=== PATIENT | female | born 1995 | race Caucasian/White ===

== ENCOUNTER → 2016-08-25 | Outpatient (REF) | payer MEDICAID ==
[2016-08-25 16:25] LABS: VITAMIN B12 LEVEL 647 PG/ML (247-911)
[2016-08-25 16:26] LABS: MEAN CORPUSCULAR HEMOGLOBIN 30.9 pg (27.0-33.0); MEAN CORPUSCULAR HGB CONC 33.8 g/dl (32.0-36.5); MEAN CORPUSCULAR VOLUME 91.3 fl (80.0-96.0); RED CELL DISTRIBUTION WIDTH 12.7 % (11.5-14.5); WHITE BLOOD COUNT 7.2 K/mm3 (4.0-10.0)
[2016-08-25 16:27] LABS: ALBUMIN 4.1 GM/DL (3.2-5.2); ALBUMIN/GLOBULIN RATIO 1.41 (1.00-1.93); ALKALINE PHOSPHATASE 53 U/L (45-117); ALT/SGPT 46 U/L (12-78); ANION GAP 8 MEQ/L (8-16); AST/SGOT 24 U/L (15-37); BILIRUBIN,TOTAL 0.3 MG/DL (0.2-1.0); BLOOD UREA NITROGEN 15 MG/DL (7-18); CALCIUM LEVEL 9.2 MG/DL (8.5-10.1); CARBON DIOXIDE LEVEL 29 MEQ/L (21-32); CHLORIDE LEVEL 107 MEQ/L (98-107); CREATININE FOR GFR 0.74 MG/DL (0.55-1.02); GLOMERULAR FILTRATION RATE > 60.0 (>60); GLUCOSE, FASTING 87 MG/DL (70-105); POTASSIUM SERUM 3.7 MEQ/L (3.5-5.1); SODIUM LEVEL 144 MEQ/L (136-145)
== END ==
LOC: M SFHCPLAZ 13:54
PROVIDERS: ATTEND Nurse Practitioner Adult Health
DX: R53.83 Other fatigue (principal); E66.9 Obesity, unspecified

== ENCOUNTER → 2016-11-19 | Outpatient (REF) | payer OTHER | LOC: M SFHCPLAZ 09:01 | PROVIDERS: ATTEND Nurse Practitioner Adult Health | DX: E66.9 Obesity, unspecified (principal) ==

== ENCOUNTER → 2017-08-28 | Outpatient (CLI) | payer OTHER ==
[2017-08-28 11:06] LABS: HEMATOCRIT 39.9 % (36.0-47.0); HEMOGLOBIN 13.3 g/dl (12.0-16.0); MEAN CORPUSCULAR HEMOGLOBIN 30.4 pg (27.0-33.0); MEAN CORPUSCULAR HGB CONC 33.3 g/dl (32.0-36.5); MEAN CORPUSCULAR VOLUME 91.3 fl (80.0-96.0); PLATELET COUNT, AUTOMATED 264 10^3/uL (150-450); RED BLOOD COUNT 4.37 10^6/uL (4.00-5.40); RED CELL DISTRIBUTION WIDTH 12.5 % (11.5-14.5); WHITE BLOOD COUNT 7.6 10^3/uL (4.0-10.0)
[2017-08-28 11:30] LABS: ALBUMIN 4.1 GM/DL (3.2-5.2); ALBUMIN/GLOBULIN RATIO 1.28 (1.00-1.93); ALKALINE PHOSPHATASE 41 U/L (45-117); ALT/SGPT 24 U/L (12-78); ANION GAP 8 MEQ/L (8-16); AST/SGOT 17 U/L (7-37); BILIRUBIN,TOTAL 0.5 MG/DL (0.2-1.0); BLOOD UREA NITROGEN 14 MG/DL (7-18); CARBON DIOXIDE LEVEL 26 MEQ/L (21-32); CHLORIDE LEVEL 107 MEQ/L (98-107); CREATININE FOR GFR 0.69 MG/DL (0.55-1.30); GLOMERULAR FILTRATION RATE > 60.0 (>60); GLUCOSE, FASTING 70 MG/DL (70-100); POTASSIUM SERUM 3.9 MEQ/L (3.5-5.1); SODIUM LEVEL 141 MEQ/L (136-145); TOTAL PROTEIN 7.3 GM/DL (6.4-8.2)
[2017-08-30 09:37] LABS: TOTAL 25(OH) VITAMIN D 23.9 NG/ML (30.0-100.0)
== END ==
LOC: M WUC 09:00
DX: Z00.00 Encounter for general adult medical examination without abnormal findings (principal); E55.9 Vitamin D deficiency, unspecified
CPT/HCPCS: 84443

== ENCOUNTER → 2018-07-26 | Outpatient (REF) | payer OTHER | LOC: M SFHCPLAZ 16:02 | PROVIDERS: ATTEND Nurse Practitioner Adult Health | DX: N39.0 Urinary tract infection, site not specified (principal) ==

== ENCOUNTER → 2018-09-06 | Outpatient (REF) | payer OTHER ==
[2018-09-06 19:57] LABS: ALBUMIN 3.9 GM/DL (3.2-5.2); ALT/SGPT 34 U/L (12-78); BILIRUBIN,TOTAL 0.4 MG/DL (0.2-1.0); BLOOD UREA NITROGEN 12 MG/DL (7-18); CALCIUM LEVEL 8.8 MG/DL (8.5-10.1); CARBON DIOXIDE LEVEL 27 MEQ/L (21-32); CHLORIDE LEVEL 106 MEQ/L (98-107); GLOMERULAR FILTRATION RATE > 60.0 (>60); GLUCOSE, FASTING 72 MG/DL (70-100); POTASSIUM SERUM 4.4 MEQ/L (3.5-5.1); SODIUM LEVEL 141 MEQ/L (136-145); THYROID STIMULATING HORMONE 0.633 uIU/ML (0.358-3.740); TOTAL 25(OH) VITAMIN D 38.3 NG/ML (30.0-100.0); TOTAL PROTEIN 7.1 GM/DL (6.4-8.2); VITAMIN B12 LEVEL 636 PG/ML (247-911)
== END ==
LOC: M SFHCPLAZ 14:48
PROVIDERS: ATTEND Nurse Practitioner Adult Health
DX: Z00.00 Encounter for general adult medical examination without abnormal findings (principal); E55.9 Vitamin D deficiency, unspecified

== ENCOUNTER → 2019-06-23 | Outpatient (REF) | payer OTHER ==
[2019-06-23 12:54] LABS: HEMOGLOBIN A1c 5.1 %
[2019-06-23 13:02] LABS: ALT/SGPT 29 U/L (12-78); BLOOD UREA NITROGEN 17 MG/DL (7-18); CALCIUM LEVEL 9.4 MG/DL (8.5-10.1); CARBON DIOXIDE LEVEL 29 MEQ/L (21-32); CHLORIDE LEVEL 109 MEQ/L (98-107); CREATININE FOR GFR 0.67 MG/DL (0.55-1.30); GLOMERULAR FILTRATION RATE > 60.0 (>60); GLUCOSE, FASTING 90 MG/DL (70-100); POTASSIUM SERUM 4.3 MEQ/L (3.5-5.1); SODIUM LEVEL 143 MEQ/L (136-145)
[2019-06-23 13:03] LABS: ALBUMIN 3.8 GM/DL (3.2-5.2); BILIRUBIN,TOTAL 0.5 MG/DL (0.2-1.0); THYROID STIMULATING HORMONE 0.883 uIU/ML (0.358-3.740); TOTAL 25(OH) VITAMIN D 43.5 NG/ML (30.0-100.0)
== END ==
LOC: M SFHCPLAZ 08:39
PROVIDERS: ATTEND Nurse Practitioner Adult Health
DX: E55.9 Vitamin D deficiency, unspecified (principal); R53.83 Other fatigue; E66.9 Obesity, unspecified

== ENCOUNTER → 2020-03-21 | Outpatient (CLI) | payer OTHER ==
[2020-03-21 17:33] LABS: ALT/SGPT 36 U/L (12-78); BILIRUBIN,TOTAL 0.3 MG/DL (0.2-1.0); BLOOD UREA NITROGEN 14 MG/DL (7-18); CALCIUM LEVEL 9.2 MG/DL (8.5-10.1); CARBON DIOXIDE LEVEL 30 MEQ/L (21-32); CHLORIDE LEVEL 107 MEQ/L (98-107); CREATININE FOR GFR 0.74 MG/DL (0.55-1.30); GLOMERULAR FILTRATION RATE > 60.0 (>60); GLUCOSE, FASTING 97 MG/DL (70-100); POTASSIUM SERUM 4.1 MEQ/L (3.5-5.1); SODIUM LEVEL 141 MEQ/L (136-145); THYROID STIMULATING HORMONE 0.914 uIU/ML (0.358-3.740); TOTAL 25(OH) VITAMIN D 24.4 NG/ML (30.0-100.0); TOTAL PROTEIN 7.1 GM/DL (6.4-8.2)
== END ==
LOC: M PLALAB 12:39
PROVIDERS: ATTEND Nurse Practitioner Adult Health
DX: Z00.00 Encounter for general adult medical examination without abnormal findings (principal); E66.9 Obesity, unspecified; Z13.29 Encounter for screening for other suspected endocrine disorder

== ENCOUNTER → 2022-06-04 | Outpatient (CLI) | payer BC, OTHER ==
[2022-06-04 10:18] LABS: HEMATOCRIT 39.7 % (36.0-47.0); HEMOGLOBIN 13.1 g/dl (12.0-15.5); MEAN CORPUSCULAR HEMOGLOBIN 31.3 pg (27.0-33.0); MEAN CORPUSCULAR VOLUME 94.7 fl (80.0-96.0); PLATELET COUNT, AUTOMATED 232 10^3/uL (150-450); RED BLOOD COUNT 4.19 10^6/uL (4.00-5.40); WHITE BLOOD COUNT 3.7 10^3/uL (4.0-10.0)
[2022-06-04 12:45] LABS: ALBUMIN 3.9 G/DL (3.2-5.2); ALKALINE PHOSPHATASE 37 U/L (46-116); ALT/SGPT 21 U/L (7.0-40); AST/SGOT 18 U/L (<34); BILIRUBIN,TOTAL 0.3 MG/DL (0.3-1.2); BLOOD UREA NITROGEN 15 MG/DL (9-23); CALCIUM LEVEL 9.8 MG/DL (8.5-10.1); CARBON DIOXIDE LEVEL 29 MMOL/L (20-31); CHLORIDE LEVEL 107 MMOL/L (98-107); CREATININE FOR GFR 0.59 MG/DL (0.55-1.30); GLOMERULAR FILTRATION RATE > 60.0 (>60); GLUCOSE, FASTING 94 MG/DL (60-100); POTASSIUM SERUM 4.3 MMOL/L (3.5-5.1); SODIUM LEVEL 142 MMOL/L (136-145); THYROID STIMULATING HORMONE 0.457 uIU/ML (0.55-4.78); TOTAL 25(OH) VITAMIN D 39.4 NG/ML (20.0-100.0); TOTAL PROTEIN 6.6 G/DL (5.7-8.2); VITAMIN B12 LEVEL 481 PG/ML (211-911)
== END ==
LOC: M LAB 09:26
PROVIDERS: ATTEND Nurse Practitioner Adult Health
DX: Z00.00 Encounter for general adult medical examination without abnormal findings (principal); E55.9 Vitamin D deficiency, unspecified; Z13.29 Encounter for screening for other suspected endocrine disorder; Z82.5 Family history of asthma and other chronic lower respiratory diseases

== ENCOUNTER → 2022-08-20 | Outpatient (REF) | payer BC, OTHER ==
[2022-08-20 22:30] LABS: APPEARANCE, URINE MANUAL CLOUDY (CLEAR); COLOR, URINE MANUAL LT YELLOW (YELLOW)
[2022-08-20 22:31] LABS: BILIRUBIN, URINE MANUAL NEGATIVE (NEGATIVE); BLOOD URINE MANUAL POSITIVE (NEGATIVE); GLUCOSE, URINE (UA) MANUAL NEGATIVE (NEGATIVE); KETONE, URINE MANUAL NEGATIVE (NEGATIVE); LEUKOCYTE ESTERASE, URINE MAN POSITIVE (NEGATIVE); NITRITE, URINE MANUAL NEGATIVE (NEGATIVE); PH,URINE MAN 6.5 UNITS (5.0 - 7.0); PROTEIN, URINE MANUAL NEGATIVE (NEGATIVE); UROBILINOGEN, URINE MANUAL NORMAL (NORMAL)
[2022-08-20 22:32] LABS: URINE PREG TEST NEGATIVE (NEGATIVE)
[2022-08-20 22:41] LABS: BACTERIA, URINE SMALL AMOUNT; HYALINE CAST, URINE NONE SEEN /lpf (0-1); RBC, URINE TNTC /hpf (0-3); SQUAMOUS EPITHELIAL CELL URINE SMALL AMOUNT /hpf (SMALL AMT); WBC, URINE 40-50 /hpf (0-3)
== END ==
LOC: M LAB REF 22:25
PROVIDERS: ATTEND Physician Assistant
DX: O23.30 Infections of other parts of urinary tract in pregnancy, unspecified trimester (principal)

== ENCOUNTER → 2022-11-10 | Outpatient (REF) | payer BC, OTHER | LOC: M SFHCDERM 12:20 | PROVIDERS: ATTEND Nurse Practitioner Family | DX: D49.2 Neoplasm of unspecified behavior of bone, soft tissue, and skin (principal); L08.89 Other specified local infections of the skin and subcutaneous tissue ==

== ENCOUNTER → 2022-11-10 | Outpatient (REF) | payer BC, OTHER | LOC: M SFHCWAGY 17:20 | PROVIDERS: ATTEND Nurse Practitioner Family | DX: Z12.4 Encounter for screening for malignant neoplasm of cervix (principal) ==

== ENCOUNTER → 2024-04-19 | Outpatient (CLI) | payer BC ==
[2024-04-19 11:59] LABS: HEMATOCRIT 38.6 % (36.0-47.0); HEMOGLOBIN 12.9 g/dl (12.0-15.5); MEAN CORPUSCULAR HEMOGLOBIN 31.5 pg (27.0-33.0); MEAN CORPUSCULAR HGB CONC 33.4 g/dl (32.0-36.5); MEAN CORPUSCULAR VOLUME 94.4 fl (80.0-96.0); PLATELET COUNT, AUTOMATED 249 10^3/uL (150-450); RED BLOOD COUNT 4.09 10^6/uL (4.00-5.40); WHITE BLOOD COUNT 5.9 10^3/uL (4.0-10.0)
[2024-04-19 12:53] LABS: HIV 1&2 SCREEN NEGATIVE (NEGATIVE)
[2024-04-19 13:01] LABS: HEPATITIS C VIRUS ABY INDEX 0.02 INDEX (<0.8)
== END ==
LOC: M PLALAB 09:02
PROVIDERS: ATTEND Obstetrics & Gynecology
DX: Z34.01 Encounter for supervision of normal first pregnancy, first trimester (principal); Z31.430 Encounter of female for testing for genetic disease carrier status for procreative management

== ENCOUNTER → 2024-05-18 | Outpatient (CLI) | payer BC ==
[2024-05-18 11:45] LABS: GC DNA AMPLIFICATION NEGATIVE (NEGATIVE)
== END ==
LOC: M PLALAB 08:49
PROVIDERS: ATTEND Nurse Practitioner Family
DX: Z34.02 Encounter for supervision of normal first pregnancy, second trimester (principal); Z3A.00 Weeks of gestation of pregnancy not specified

== ENCOUNTER → 2024-05-30 | Outpatient (CLI) | payer BC ==
[2024-05-30 14:40] LABS: GC DNA AMPLIFICATION NEGATIVE (NEGATIVE)
== END ==
LOC: M PLALAB 08:31
PROVIDERS: ATTEND Obstetrics & Gynecology
DX: Z34.01 Encounter for supervision of normal first pregnancy, first trimester (principal); Z3A.00 Weeks of gestation of pregnancy not specified

== ENCOUNTER → 2024-05-30 | Outpatient (CLI) | payer BC ==
[2024-05-30 13:27] LABS: HEMATOCRIT 38.1 % (36.0-47.0); HEMOGLOBIN 12.7 g/dl (12.0-15.5); MEAN CORPUSCULAR HEMOGLOBIN 31.2 pg (27.0-33.0); MEAN CORPUSCULAR HGB CONC 33.3 g/dl (32.0-36.5); MEAN CORPUSCULAR VOLUME 93.6 fl (80.0-96.0); PLATELET COUNT, AUTOMATED 253 10^3/uL (150-450); RED BLOOD COUNT 4.07 10^6/uL (4.00-5.40); WHITE BLOOD COUNT 6.2 10^3/uL (4.0-10.0)
[2024-05-30 13:30] LABS: ALBUMIN 3.4 G/DL (3.2-5.2); ALKALINE PHOSPHATASE 43 U/L (35-104); ALT/SGPT 19 U/L (7.0-40); AST/SGOT < 8 U/L (<34); BILIRUBIN,TOTAL 0.2 MG/DL (0.3-1.2); BLOOD UREA NITROGEN 7 MG/DL (9-23); CALCIUM LEVEL 9.8 MG/DL (8.5-10.1); CARBON DIOXIDE LEVEL 26 MMOL/L (20-31); CHLORIDE LEVEL 109 MMOL/L (98-107); CHOLESTEROL LEVEL 237 MG/DL (<200); CHOLESTEROL RISK RATIO 4.03 (<5); CREATININE FOR GFR 0.51 MG/DL (0.55-1.30); GLOMERULAR FILTRATION RATE > 60.0 (>60); GLUCOSE, FASTING 87 MG/DL (60-100); HDL CHOLESTEROL 58.8 MG/DL (>40); IRON (FE) 90 UG/DL (50-170); LDL CHOLESTEROL 151.8 MG/DL (<100); NON-HDL-C 178.2 MG/DL; POTASSIUM SERUM 4.4 MMOL/L (3.5-5.1); SODIUM LEVEL 140 MMOL/L (136-145); TOTAL PROTEIN 6.5 G/DL (5.7-8.2); TRIGLYCERIDES LEVEL 132 MG/DL (<150)
[2024-05-30 14:00] LABS: HEMOGLOBIN A1c 4.8 % (4.0-6.0)
== END ==
LOC: M PLALAB 08:29
PROVIDERS: ATTEND Nurse Practitioner Adult Health
DX: Z00.00 Encounter for general adult medical examination without abnormal findings (principal); E55.9 Vitamin D deficiency, unspecified

== ENCOUNTER → 2024-06-13 | Outpatient (CLI) | payer BC | LOC: M PLALAB 14:40 | PROVIDERS: ATTEND Advanced Practice Midwife | DX: Z34.90 Encounter for supervision of normal pregnancy, unspecified, unspecified trimester (principal); Z3A.00 Weeks of gestation of pregnancy not specified ==

== ENCOUNTER → 2024-07-03 | Outpatient (CLI) | payer BC | LOC: M WHC 08:29 | PROVIDERS: ATTEND Nurse Practitioner Family | DX: Z34.02 Encounter for supervision of normal first pregnancy, second trimester (principal); Z3A.20 20 weeks gestation of pregnancy ==

== ENCOUNTER → 2024-08-10 | Outpatient (CLI) | payer BC | LOC: M RAD 10:21 | PROVIDERS: ATTEND Obstetrics & Gynecology | DX: Z34.92 Encounter for supervision of normal pregnancy, unspecified, second trimester (principal) ==

== ENCOUNTER → 2024-08-21 | Outpatient (CLI) | payer BC ==
[2024-08-21 18:16] LABS: CREATININE,RANDOM URINE 48.2 MG/DL
[2024-08-21 18:17] LABS: ALKALINE PHOSPHATASE 72 U/L (35-104); ALT/SGPT 16 U/L (7.0-40); AST/SGOT 9 U/L (<34); BILIRUBIN,TOTAL 0.2 MG/DL (0.3-1.2); BLOOD UREA NITROGEN 8 MG/DL (9-23); CALCIUM LEVEL 9.1 MG/DL (8.5-10.1); CARBON DIOXIDE LEVEL 25 MMOL/L (20-31); CHLORIDE LEVEL 104 MMOL/L (98-107); GLOMERULAR FILTRATION RATE > 60.0 (>60); GLUCOSE, FASTING 77 MG/DL (60-100); POTASSIUM SERUM 3.8 MMOL/L (3.5-5.1); SODIUM LEVEL 141 MMOL/L (136-145); TOTAL PROTEIN 6.7 G/DL (5.7-8.2); TOTAL PROTEIN,RANDOM URINE < 6.0 MG/DL (0.0-14.0)
== END ==
LOC: M PLALAB 15:45
PROVIDERS: ATTEND Obstetrics & Gynecology
DX: O16.3 Unspecified maternal hypertension, third trimester (principal)

== ENCOUNTER → 2024-08-21 | Outpatient (CLI) | payer BC ==
[2024-08-21 17:50] LABS: HEMATOCRIT 34.5 % (36.0-47.0); HEMOGLOBIN 11.4 g/dl (12.0-15.5); MEAN CORPUSCULAR HEMOGLOBIN 31.8 pg (27.0-33.0); MEAN CORPUSCULAR VOLUME 96.1 fl (80.0-96.0); PLATELET COUNT, AUTOMATED 255 10^3/uL (150-450); RED BLOOD COUNT 3.59 10^6/uL (4.00-5.40); WHITE BLOOD COUNT 9.7 10^3/uL (4.0-10.0)
[2024-08-21 18:05] LABS: GLUCOSE CHALLENGE TEST 1 HOUR 87 MG/DL (LESS THAN 140)
[2024-08-21 18:42] LABS: HEPATITIS C VIRUS ABY INDEX 0.12 INDEX (<0.8)
[2024-08-21 22:54] LABS: GC DNA AMPLIFICATION NEGATIVE (NEGATIVE)
[2024-08-22 12:28] LABS: HIV 1&2 SCREEN NEGATIVE (NEGATIVE)
== END ==
LOC: M PLALAB 14:36
PROVIDERS: ATTEND Obstetrics & Gynecology
DX: Z34.92 Encounter for supervision of normal pregnancy, unspecified, second trimester (principal)

== ENCOUNTER → 2024-09-29 | Outpatient (CLI) | payer BC | LOC: M WHC 08:28 | PROVIDERS: ATTEND Obstetrics & Gynecology | DX: Z36.2 Encounter for other antenatal screening follow-up (principal); Z3A.33 33 weeks gestation of pregnancy ==

== ENCOUNTER → 2024-10-12 | Outpatient (REF) | payer BC | LOC: M PLALAB 15:30 | PROVIDERS: ATTEND Obstetrics & Gynecology | DX: O13.3 Gestational [pregnancy-induced] hypertension without significant proteinuria, third trimester (principal); Z3A.35 35 weeks gestation of pregnancy ==

== ENCOUNTER → 2024-10-12 | Outpatient (CLI) | payer BC ==
[2024-10-12 15:57] LABS: HEMOGLOBIN 12.2 g/dl (12.0-15.5); MEAN CORPUSCULAR HEMOGLOBIN 32.4 pg (27.0-33.0); MEAN CORPUSCULAR HGB CONC 33.9 g/dl (32.0-36.5); MEAN CORPUSCULAR VOLUME 95.5 fl (80.0-96.0); PLATELET COUNT, AUTOMATED 231 10^3/uL (150-450); RED BLOOD COUNT 3.77 10^6/uL (4.00-5.40); WHITE BLOOD COUNT 7.8 10^3/uL (4.0-10.0)
[2024-10-12 16:17] LABS: URIC ACID 5.3 MG/DL (3.1-7.8)
[2024-10-12 16:19] LABS: LDH LACTATE DEHYDROGENASE 157 U/L (120-246)
[2024-10-12 16:20] LABS: ALT/SGPT 17 U/L (7.0-40); AST/SGOT 16 U/L (<34); BILIRUBIN,TOTAL 0.2 MG/DL (0.3-1.2); CREATININE FOR GFR 0.57 MG/DL (0.55-1.30); GLOMERULAR FILTRATION RATE > 60.0 (>60)
== END ==
LOC: M PLALAB 14:15
PROVIDERS: ATTEND Obstetrics & Gynecology
DX: O13.3 Gestational [pregnancy-induced] hypertension without significant proteinuria, third trimester (principal)

== ENCOUNTER → 2024-10-18 | Outpatient (REF) | payer BC ==
[2024-10-18 11:09] LABS: TOTAL PROTEIN,RANDOM URINE 10.4 MG/DL (0.0-14.0)
[2024-10-18 11:14] LABS: CREATININE,RANDOM URINE 70.3 MG/DL
== END ==
LOC: M SFHCPLAZ 09:45
PROVIDERS: ATTEND Obstetrics & Gynecology
DX: O13.3 Gestational [pregnancy-induced] hypertension without significant proteinuria, third trimester (principal)

== ENCOUNTER 2024-10-24 08:48 | Inpatient (IN) | payer BC ==
[~2024-10-24] VITALS: Ht 162.6 cm; Wt 114.4 kg
[2024-10-24] VITALS (12 sets, daily range): BP systolic 114–139; BP diastolic 68–88; O2SAT 98–99
[2024-10-24] MEDS ORDERED: PRENTAB9 PO (09:14)
[2024-10-24] MEDS ORDERED: ECOT81TA5 PO (09:14)
[2024-10-24] MEDS ORDERED: LR 1,000 ML IV SCH (09:55)
[2024-10-24] MEDS ORDERED: TRANEXAMIC ACID INJection 1,000 MG in NS 100 ML IV PRN (09:55)
[2024-10-24] MEDS ORDERED: LIDOCAINE 1% MDV 20ML VIAL INFIL PRN (09:55)
[2024-10-24] MEDS ORDERED: CARBOPROST TROMETHAMINE 250 MCG/ML AMP IM PRN (09:55)
[2024-10-24 11:03] LABS: BASO % 0.4 % (0.0-1.0); EOS # 0.1 10^3/uL (0.0-0.5); EOS % 1.1 % (0.0-3.0); HEMATOCRIT 35.2 % (36.0-47.0); HEMOGLOBIN 11.9 g/dl (12.0-15.5); LYMPH # 1.5 10^3/uL (1.5-5.0); LYMPH % 20.9 % (24.0-44.0); MEAN CORPUSCULAR HEMOGLOBIN 31.9 pg (27.0-33.0); MEAN CORPUSCULAR HGB CONC 33.8 g/dl (32.0-36.5); MEAN CORPUSCULAR VOLUME 94.4 fl (80.0-96.0); MONO # 0.6 10^3/uL (0.0-0.8); MONO % 7.8 % (2.0-8.0); NEUTROPHILS # 5.1 10^3/uL (1.5-8.5); NEUTROPHILS % 69.3 % (36.0-66.0); PLATELET COUNT, AUTOMATED 210 10^3/uL (150-450); RED BLOOD COUNT 3.73 10^6/uL (4.00-5.40); WHITE BLOOD COUNT 7.3 10^3/uL (4.0-10.0)
[2024-10-24 11:25] LABS: URIC ACID 5.9 MG/DL (3.1-7.8)
[2024-10-24 11:28] LABS: LDH LACTATE DEHYDROGENASE 147 U/L (120-246)
[2024-10-24 11:29] LABS: ALT/SGPT 15 U/L (7.0-40); AST/SGOT 14 U/L (<34); BILIRUBIN,TOTAL 0.2 MG/DL (0.3-1.2); CREATININE FOR GFR 0.52 MG/DL (0.55-1.30); GLOMERULAR FILTRATION RATE > 60.0 (>60)
[2024-10-24 12:09] LABS: HEPATITIS C VIRUS ABY INDEX 0.02 INDEX (<0.8)
[2024-10-24 12:13] LABS: TOTAL PROTEIN,RANDOM URINE 10.9 MG/DL (0.0-14.0)
[2024-10-24 12:19] LABS: CREATININE,RANDOM URINE 70.1 MG/DL
[2024-10-24] MEDS: miSOPROStol 50MCG 1/2 TABLET PO SCH (12:24)
[2024-10-25] VITALS (27 sets, daily range): BP systolic 111–170; BP diastolic 62–102
[2024-10-25] MEDS: miSOPROStol 50MCG 1/2 TABLET PO ONE (09:06)
[2024-10-25] MEDS: LR 1,000 ML IV SCH (14:05)
[2024-10-25] MEDS: OXYTOCIN DRIP 30 UNITS in IV 1 EA IV SCH (14:05)
[2024-10-25] MEDS: ACETAMINOPHEN 500 MG TAB PO PRN (21:33)
[2024-10-26] VITALS (42 sets, daily range): BP systolic 116–158; BP diastolic 59–94; O2SAT 100
[2024-10-26] MEDS ORDERED: LR 500 ML IV PRN (01:25)
[2024-10-26] MEDS ORDERED: diphenhydrAMINE 50MG/ML VIAL IV PRN (01:25)
[2024-10-26] MEDS ORDERED: ONDANSETRON 4MG 2ML VIAL IV PRN ×2 (01:25→14:15)
[2024-10-26] MEDS ORDERED: EPIDURAL/PCA KEYS XX PRN (01:25)
[2024-10-26] MEDS ORDERED: ePHEDrine SULFATE 25 MG/5 ML(5MG/ML) SYRINGE IVP PRN (01:25)
[2024-10-26] MEDS ORDERED: NALOXONE INJ 0.4MG/1ML VIAL IV PRN (01:25)
[2024-10-26] MEDS: FENTANYL/ROPIVACAINE/NACL BAG 100 ML EPIDURAL SCH (01:25)
[2024-10-26] MEDS: LACTATED RINGER'S 1000 ML IV STA (01:41)
[2024-10-26] MEDS: PRENATAL VITAMINS CHEWABLE TABLET PO SCH (09:00)
[2024-10-26] MEDS: OXYTOCIN DRIP 30 UNITS in IV 1 EA IV PRN (13:59)
[2024-10-26] MEDS ORDERED: DOCUSATE SODIUM 100MG CAPSULE PO PRN (14:15)
[2024-10-26] MEDS ORDERED: ACETAMINOPHEN 500 MG TAB PO PRN (14:15)
[2024-10-26] MEDS: OXYTOCIN DRIP 30 UNITS in IV 1 EA IV SCH (14:15)
[2024-10-26] MEDS ORDERED: CALCIUM CARBONATE 500 MG CHEW U/D PO PRN (14:15)
[2024-10-26] MEDS ORDERED: RHOGAM 300MCG (1500IU) INJ IM SCH (14:15)
[2024-10-26] MEDS ORDERED: LR 1,000 ML IV SCH (14:15)
[2024-10-26] MEDS ORDERED: IBUPROFEN 800 MG TAB PO PRN (14:15)
[2024-10-26] MEDS ORDERED: ACETAMINOPHEN 325 MG TAB PO PRN (14:15)
[2024-10-26] MEDS ORDERED: IBUPROFEN 600MG TAB PO PRN (14:15)
[2024-10-26] MEDS ORDERED: ANUSOL HC CREAM 30GM TOP PRN (14:15)
[2024-10-26] MEDS ORDERED: METHYLERGONOVINE MALEATE 0.2 MG TAB PO PRN (14:15)
[2024-10-27 05:57] VITALS: BP 137/83; O2SAT 98
[2024-10-27] MEDS: DIBUCAINE 1% OINTMENT 30GM TOP PRN (09:22)
[2024-10-27] MEDS: FLUZONE VACCINE TRIVALENT PF(2024-25) 0.5ML SYRINGE IM.IMMUN ONE (11:36)
[2024-10-27 18:00] VITALS: BP 129/85; O2SAT 99
[2024-10-28 06:00] VITALS: BP 140/77; O2SAT 98
[2024-10-28] MEDS: MEASLES,MUMPS,RUBELLA VACCINE INJ (MMR-II) SC.IMMUN ONE (07:23)
[2024-10-28] MEDS ORDERED: ACET-683 PO (10:35)
[2024-10-28] MEDS ORDERED: IBUP80TA PO (10:35)
== END 2024-10-28 14:30 | disposition home or self-care (01) | DRG 560 ==
LOC: M LDI 08:48 → M OBS 10-26 16:00
PROVIDERS: ADMIT Obstetrics & Gynecology; ATTEND Obstetrics & Gynecology
PROC: 3E0P7GC Introduction of Other Therapeutic Substance into Female Reproductive, Via Natural or Artificial Opening (ICD-10-PCS; 2024-10-24)
PROC: 3E033VJ Introduction of Other Hormone into Peripheral Vein, Percutaneous Approach (ICD-10-PCS; 2024-10-24)
PROC: 10E0XZZ Delivery of Products of Conception, External Approach (ICD-10-PCS; principal; 2024-10-26)
PROC: 0KQM0ZZ Repair Perineum Muscle, Open Approach (ICD-10-PCS; 2024-10-26)
DX: O13.4 Gestational [pregnancy-induced] hypertension without significant proteinuria, complicating childbirth (principal); Z68.41 Body mass index [BMI] 40.0-44.9, adult; E66.9 Obesity, unspecified; Z37.0 Single live birth; Z3A.37 37 weeks gestation of pregnancy; O99.214 Obesity complicating childbirth; Z79.82 Long term (current) use of aspirin; O70.1 Second degree perineal laceration during delivery

== ENCOUNTER → 2025-06-07 | Outpatient (REF) | payer MEDICAID ==
[~2025-06-07] MED LIST: ACET-683 PO; ECOT81TA5 PO; IBUP80TA PO; PRENTAB9 PO
[2025-06-09 14:23] LABS: HPV APTIMA Not Detected (Not Detected)
== END ==
LOC: M SFHCWAGY 14:54
PROVIDERS: ATTEND Nurse Practitioner Family
DX: Z12.4 Encounter for screening for malignant neoplasm of cervix (principal)